=== PATIENT | female | born 1995 | race Caucasian/White ===

== ENCOUNTER 2023-11-04 02:31 | Inpatient (IN) | payer BC, SELFPAY ==
[2023-11-04] MEDS ORDERED: Boostrix 0.5 ML (Tdap) VIAL (>/=7 yrs of age) IM ONE (02:57)
[2023-11-04] MEDS ORDERED: Misoprostol 200 MCG TAB VAG PRN (02:57)
[2023-11-04] MEDS ORDERED: hydrALAZINE 20 MG/ML VIAL SLOW IVP PRN ×2 (02:57)
[2023-11-04] MEDS ORDERED: Tranexamic Acid 1,000 MG/10 ML VIAL IVP PRN (02:57)
[2023-11-04] MEDS ORDERED: Bisacodyl 10 MG SUPP PR PRN (02:57)
[2023-11-04] MEDS ORDERED: Methylergonovine 0.2 MG/ML VIAL IM PRN ×2 (02:57)
[2023-11-04] MEDS ORDERED: Promethazine HCl 25 MG/ML VIAL IM PRN (02:57)
[2023-11-04] MEDS ORDERED: Milk Of Magnesia 30 ML UDCUP PO PRN (02:57)
[2023-11-04] MEDS ORDERED: fentaNYL 50 mcg/mL 1 mL Vial SLOW IVP PRN (02:57)
[2023-11-04] MEDS ORDERED: Carboprost 250 MCG/ML AMP IM PRN (02:57)
[2023-11-04] MEDS ORDERED: Misoprostol 200 MCG TAB PR PRN (02:57)
[2023-11-04] MEDS ORDERED: Docusate 100 MG CAP PO PRN (02:57)
[2023-11-04] MEDS ORDERED: HYDROcodone/Acetaminophen 5/325 mg Tablet PO PRN (02:57)
[2023-11-04] MEDS ORDERED: Lidocaine 1% (PF) 30 ML VIAL SC PRN (02:57)
[2023-11-04] MEDS: Carboprost 250 MCG/ML AMP ONE (02:59)
[2023-11-04] MEDS: Oxytocin 30 units/NS 500 ML 500 ML IV SCH (03:00)
[2023-11-04] MEDS ORDERED: Oxytocin 30 units/NS 500 ML 500 ML IV SCH ×3 (03:00→03:30)
[2023-11-04] MEDS ORDERED: Oxytocin 30 units/NS 500 ML 500 ML ONE (03:09)
[2023-11-04] MEDS: fentaNYL 50 mcg/mL 1 mL Vial ONE (03:29)
[2023-11-04] MEDS ORDERED: Lactated Ringer's 1,000 ML IV SCH (03:30)
[2023-11-04] MEDS: Diphenoxylate HCl/Atropine Tablet PO PRN (03:33)
[2023-11-04 03:53] LABS: Hematocrit 33.4 % (34.9-44.5); Hemoglobin 12.1 g/dL (12.0-15.5); Mean Corpuscular HGB CONC 36.2 g/dL (32.0-36.0); Mean Corpuscular Hemoglobin 32.8 pg (27.0-33.0); Mean Corpuscular Volume 90.5 fL (81.6-98.3); Mean Platelet Volume 9.2 fL (7.4-10.4); Platelet Count 331 10x3/uL (150-450); RBC Distribution Width 13.2 % (11.5-14.5); Red Blood Cell (RBC) Count 3.69 10x6/uL (3.90-5.03); White Blood Cell (WBC) Count 22.5 10x3/uL (3.5-10.5)
[2023-11-04] MEDS: Morphine 4 MG/ML VIAL ONE (03:55)
[2023-11-04] MEDS ORDERED: Morphine 4 MG/ML VIAL SLOW IVP PRN (03:56)
[2023-11-04] MEDS: Ondansetron PF 4 MG/2 ML Vial IVP PRN (04:01)
[2023-11-04 04:25] LABS: Syphilis Antibody Nonreactive (Nonreactive); Syphilis Antibody Index 0.05 S/CO (<1.00 Non-Reactive)
[2023-11-04 04:26] LABS: HBsAg Index 0.25 S/CO (0-0.99); HIV (1/2) Antibody/Antigen Non-Reactive (NonReactive); Hep B Surf Ag - L&D Non-Reactive S/CO (NonReactive)
[2023-11-04 06:09] VITALS: BMI 35.2
[2023-11-04] MEDS: Ampicillin/Sulbactam 3 GM in Sodium Chloride 0.9% 100 ML IVPB SCH (06:23)
[2023-11-04] MEDS: HYDROcodone/Acetaminophen 5/325 mg Tablet PO PRN (06:33)
[2023-11-04] MEDS ORDERED: Ferrous Sulfate 325 MG TAB PO SCH (08:00)
[2023-11-04] MEDS ORDERED: Docusate 100 MG CAP PO SCH (09:00)
[2023-11-05 05:15] LABS: Toxoplasma IgG AB Less than 3.0 IU/mL (0.0-7.1)
[2023-11-06 06:15] LABS: CMV IgM AB Less than 30.0 AU/mL (0.0-29.9); HSV-1 IgG Type Specific 9.12 index (0.00-0.90); HSV-2 IgG Type Specific Less than 0.91 index (0.00-0.90); Toxoplasma IgM AB Less than 3.0 AU/mL (0.0-7.9)
[2023-11-06 14:17] LABS: Parvovirus B19 IgG ABS 7.7 index (0.0-0.8); Parvovirus B19 IgM ABS 0.1 index (0.0-0.8)
== END 2023-11-04 13:52 | disposition home or self-care (01) | DRG 807 ==
LOC: CSHLD/OP 02:31 → CSHLD 03:33
PROVIDERS: ADMIT Obstetrics & Gynecology; ATTEND Obstetrics & Gynecology
PROC: 10E0XZZ Delivery of Products of Conception, External Approach (ICD-10-PCS; principal; 2023-11-04)
DX: O30.033 Twin pregnancy, monochorionic/diamniotic, third trimester (principal); Z37.4 Twins, both stillborn; Z3A.21 21 weeks gestation of pregnancy; Z91.041 Radiographic dye allergy status; Z91.040 Latex allergy status; Z88.8 Allergy status to other drugs, medicaments and biological substances
CPT/HCPCS: 36415; 85027; 86644; 86645; 86695; 86696; 86747; 86762; 86777; 86778; 86780; 86850; 86900; 86901; 87340; 87389; 99285; J0295; J2270; J2405; J2590; J3010; J3490

== ENCOUNTER 2023-11-04 02:57 | Emergency (ER) | payer BC, SELFPAY | END 2023-11-04 04:28 | disposition admitted as inpatient to this hospital (09) | LOC: CSHERS 02:57 | DX: O60.1 Preterm labor with preterm delivery (principal); Z3A.21 21 weeks gestation of pregnancy | CPT/HCPCS: 99285 ==